=== PATIENT | male | born 1975 | race Caucasian/White ===

== ENCOUNTER 2019-05-14 17:30 | Outpatient (CLI) | payer BC | END 2019-05-14 17:31 | disposition home or self-care (01) | LOC: SLEEPLAB 17:30 | PROVIDERS: ATTEND Internal Medicine | DX: G47.33 Obstructive sleep apnea (adult) (pediatric) (principal); R53.83 Other fatigue; G47.00 Insomnia, unspecified; R35.1 Nocturia; R06.83 Snoring; R51 Headache; G47.31 Primary central sleep apnea; Z68.29 Body mass index [BMI] 29.0-29.9, adult | CPT/HCPCS: 95806 ==

== ENCOUNTER 2019-06-06 20:30 | Outpatient (CLI) | payer BC | END 2019-06-06 20:31 | disposition home or self-care (01) | LOC: SLEEPLAB 20:30 | PROVIDERS: ATTEND Internal Medicine | DX: G47.33 Obstructive sleep apnea (adult) (pediatric) (principal); G47.31 Primary central sleep apnea | CPT/HCPCS: 95811 ==

== ENCOUNTER 2019-07-16 13:27 | Outpatient (CLI) | payer BC | END 2019-07-16 13:28 | disposition home or self-care (01) | LOC: ULT 13:27 | PROVIDERS: ATTEND Internal Medicine | DX: G47.31 Primary central sleep apnea (principal); G47.33 Obstructive sleep apnea (adult) (pediatric); I07.1 Rheumatic tricuspid insufficiency | CPT/HCPCS: 93306 ==

== ENCOUNTER 2019-07-23 19:30 | Outpatient (CLI) | payer BC | END 2019-07-23 19:31 | disposition home or self-care (01) | LOC: SLEEPLAB 19:30 | PROVIDERS: ATTEND Internal Medicine | DX: G47.33 Obstructive sleep apnea (adult) (pediatric) (principal); G47.31 Primary central sleep apnea | CPT/HCPCS: 95811 ==

== ENCOUNTER 2020-06-05 08:06 | Outpatient (CLI) | payer BC ==
[2020-06-05 16:28] LABS: Hemoglobin 14.2 g/dL (14.0-18.0); Mean Corpuscular HGB CONC 33.5 G/DL (32.0-36.0); Mean Corpuscular Hemoglobin 29.3 PG (27.0-33.0); Mean Corpuscular Volume 87.4 fl (80.0-100.0); Mean Platelet Volume 11.8 fl (7.4-10.4); Platelet Count 208 10x3/uL (130-400); RBC Distribution Width 11.5 % (11.5-14.5); Red Blood Cell (RBC) Count 4.85 10x6/uL (4.40-5.80); White Blood Cell (WBC) Count 6.2 10x3/uL (4.5-11.0)
[2020-06-05 16:36] LABS: Anion Gap 11 mmol/L (10-20); BUN (Urea Nitrogen) 16 mg/dL (8.9-20.6); Calc. Creatinine Clearance 0 mL/min (70-130); Calcium 9.3 mg/dL (7.8-10.44); Carbon Dioxide 31 mmol/L (22-29); Chloride 103 mmol/L (98-107); Glucose 106 mg/dL (70-105); Sodium 141 mmol/L (136-145)
[2020-06-06 02:30] LABS: SARS-CoV-2 PCR by NAA Not Detected (NotDetected)
== END 2020-06-05 08:07 | disposition home or self-care (01) ==
LOC: LABBT 08:06
PROVIDERS: ATTEND Internal Medicine Cardiovascular Disease
DX: Z01.812 Encounter for preprocedural laboratory examination (principal); Z20.822 Contact with and (suspected) exposure to COVID-19
CPT/HCPCS: 80048; 85027; 85610; 87635; U0003; U0005

== ENCOUNTER 2020-06-10 10:07 | Inpatient (IN) | payer BC ==
[2020-06-09 10:50] VITALS: BMI 26.9
[2020-06-10] MEDS ORDERED: Heparin 10,000 UNITS/ 10 ML VIAL ONE (10:27)
[2020-06-10] MEDS ORDERED: Dexamethasone 20 MG/5 ML VIAL ONE (11:11)
[2020-06-10] MEDS ORDERED: PROPOFOL 200 MG/20 ML VIAL ONE (11:11)
[2020-06-10] MEDS ORDERED: Glycopyrrolate 0.2 MG/ML 5 ML SYRINGE ONE (11:11)
[2020-06-10] MEDS ORDERED: Lidocaine 1% PF 5 ML VIAL ONE (11:11)
[2020-06-10] MEDS ORDERED: PHENYLEPHRINE-NS 100 MCG/ML 10 ML SYRINGE ONE (11:11)
[2020-06-10] MEDS ORDERED: Ondansetron PF 4 MG/2 ML Vial ONE (11:11)
[2020-06-10] MEDS ORDERED: Rocuronium Bromide 10 MG/ML (10ML VIAL) ONE (11:11)
[2020-06-10] MEDS ORDERED: Fentanyl 100 MCG/2 ML VIAL ONE (11:41)
[2020-06-10] MEDS ORDERED: Midazolam HCl 2 mg/2 ml Vial ONE (11:41)
[2020-06-10] MEDS ORDERED: Protamine Sulfate 50 MG/5 ML VIAL ONE (16:22)
--- NOTE | 2020-06-10 20:35 | OP ---
DATE OF PROCEDURE: 06/10/2020 PCP: Eden Howard. REFERRING HOOKER OPERATOR: Rob Lew MD. PREOPERATIVE DIAGNOSIS: Paroxysmal atrial fibrillation. POSTOPERATIVE DIAGNOSIS: Paroxysmal atrial fibrillation. PROCEDURES PERFORMED: 1. Pulmonary vein isolation. 2. 3D mapping of arrhythmia. 3. Intracardiac echocardiography. MANAGER RADIATION: None. ANESTHESIA: General endotracheal. SPECIMENS: None. ESTIMATED BLOOD LOSS: 20 mL. COMPLICATIONS: None. DESCRIPTION OF PROCEDURE: The risks, benefits, and alternatives of transesophageal echocardiogram and radiofrequency ablation including but not limited to myocardial infarction, stroke, , need for emergent surgery, vascular damage, need for surgery, damage to esophageal and oropharyngeal structures, pulmonary vein stenosis, esophageal fissure, and allergic reaction were discussed prior to the procedure. The patient voiced understanding and was agreeable to proceed. The patient was intubated by Anesthesia. Transesophageal echocardiogram showed normal left atrial size with ejection fraction of 65%, normal valvular structures with trace mitral regurgitation. Temperature probe was placed by Anesthesia in the esophagus and used to monitor esophageal temperature throughout the case. The bilateral femoral areas were prepped and draped in a sterile fashion. Lidocaine was infiltrated in these areas. Using ultrasound guidance, two long 7-Cymro sheaths were placed in the left femoral vein. One 7-Cymro sheath was exchanged for a long 10-Cymro sheath. Two Lamp 45 sheaths were placed in the right femoral vein. A decapolar catheter was placed in the coronary sinus. There was difficulty engaging the coronary sinus, but it was able to be engaged. Intracardiac echocardiography was placed in the right atrium and used to guide the ablation and transseptal catheterization. Using the HD grid, 3D mapping was performed of the right atrium. Transseptal catheterization was then performed. HD grid was then used to map the left atrium. Heparin was given prior to transseptal puncture and adjusted throughout the case for target ACT of 300 to 350 seconds. All four veins had activity at baseline. Radiofrequency energy was applied at 50 cortes. Three of the four veins were isolated at end of the procedure. The right superior pulmonary vein was not completely isolated due to diaphragmatic stimulation when pacing near the anterior ostium of the vein. 3D mapping confirmed that the conduction was present only in this location. Therefore, the vein was incompletely isolated due to the risk of phrenic nerve injury. Sheaths were pulled back to the right atrium. Protamine was given to reverse the heparin. Vascade closure devices were used for hemostasis. The patient tolerated the procedure well, was transferred to recovery area in good condition. CONCLUSION: 1. Paroxysmal atrial fibrillation. 2. Successful pulmonary vein isolation. No linear lesions performed. PLAN: 1. Restart Eliquis tonight. 2. Continue flecainide. 3. Start Protonix 40 mg daily for three months. 4. Discharge home tonight. 5. Follow up with LIGIA Swann, on July 03, 2020, at 9:30 a.m. Job ID: [id number]
[2020-06-11] MEDS ORDERED: Ondansetron PF 4 MG/2 ML Vial IVP PRN (07:21)
[2020-06-11] MEDS ORDERED: HYDROcodone/Acetaminophen 5/325 mg Tablet PO PRN (07:22)
--- NOTE | 2020-06-11 07:58 | PDOC.BPN ---
- Brief Progress Note Encounter Date: 06/11/20 Encounter Time: 07:56 Patient kept overnight after right groin site bleed in recovery last night. Given the late hour of procedure decision made to monitor for a longer time to avoid hematoma formation or any chance for worsening bleeding. Has done very well overnight. Right groin site dressing this AM clean, no further drainage. Other than the typical chest soreness from our procedure the patient is doing well. Vitals and Tele have been normal overnight. We will resume Eliquis this AM and d/c to home. Continue Flecainide and Protonix. will see back as scheduled with me at [facility] in 2 weeks.
[2020-06-11 08:39] VITALS: BP 129/83; TEMP 98.3
[2020-06-11] MEDS ORDERED: Flecainide 50 MG TAB PO SCH (09:00)
[2020-06-11] MEDS ORDERED: Multivit, Therapeutic 1 TAB PO SCH (09:00)
[2020-06-11] MEDS ORDERED: Apixaban 5 MG TAB PO SCH (09:00)
[2020-06-11] MEDS ORDERED: Simvastatin 10 MG TAB PO SCH (21:00)
--- NOTE | 2020-06-12 13:15 | EKG ---
Test Reason : Blood Pressure : / mmHG Vent. Rate : 078 BPM Atrial Rate : 078 BPM P-R Int : 170 ms QRS Dur : 102 ms QT Int : 412 ms P-R-T Axes : 080 066 067 degrees QTc Int : 469 ms Normal sinus rhythm Normal ECG No previous ECGs available Confirmed by DR. Ronald BENEDICT ([id number]) on 06/12/2020 1:15:11 PM Referred By: GIOVANA Confirmed By:DR. Ronald BENEDICT
== END 2020-06-11 11:45 | disposition home or self-care (01) | DRG 274 ==
LOC: CCL 10:07 → 2NO 20:59
PROVIDERS: ADMIT Internal Medicine Cardiovascular Disease; ATTEND Internal Medicine Cardiovascular Disease
PROC: 02583ZZ Destruction of Conduction Mechanism, Percutaneous Approach (ICD-10-PCS; principal; 2020-06-10)
PROC: 02K83ZZ Map Conduction Mechanism, Percutaneous Approach (ICD-10-PCS; 2020-06-10)
PROC: B24BZZ4 Ultrasonography of Heart with Aorta, Transesophageal (ICD-10-PCS; 2020-06-10)
DX: I48.0 Paroxysmal atrial fibrillation (principal); Z88.0 Allergy status to penicillin; Z88.1 Allergy status to other antibiotic agents
CPT/HCPCS: 76942; 85347; 93005; 93312; 93613; 93656; 93662; C1730; C1732; C1753; C1894; C2630; J1100; J1644; J2250; J2405; J2704; J2720; J3010

== ENCOUNTER 2021-08-31 14:09 | Outpatient (CLI) | payer BC | END 2021-08-31 14:10 | disposition home or self-care (01) | LOC: SCSRAD 14:09 | PROVIDERS: ATTEND Physician Assistant | DX: M54.16 Radiculopathy, lumbar region (principal) | CPT/HCPCS: 72100 ==

== ENCOUNTER 2022-03-31 08:36 | Outpatient (CLI) | payer BC | END 2022-03-31 08:37 | disposition home or self-care (01) | LOC: SCSMRI 08:36 | PROVIDERS: ATTEND Family Medicine | DX: M47.26 Other spondylosis with radiculopathy, lumbar region (principal); M51.16 Intervertebral disc disorders with radiculopathy, lumbar region | CPT/HCPCS: 72148 ==

== ENCOUNTER 2023-06-27 15:31 | Emergency (ER) | payer BC ==
[2023-06-27 16:24] LABS: #Eosinphils 0.1 thou/uL (0.0-0.7); #Monocytes 0.4 thou/uL (0.11-0.59); #Neutrophils 2.7 thou/uL (1.40-6.50); %Basophils 0.8 % (0.0-1.0); %Eosinophils 2.4 % (0.0-10.0); %Lymphocytes 34.8 % (21.0-51.0); %Monocytes 8.7 % (0.0-10.0); %Neutrophils 52.9 % (42.0-75.0); Hematocrit 41.3 % (42.0-52.0); Hemoglobin 14.3 g/dL (14.0-18.0); Mean Corpuscular HGB CONC 34.6 g/dL (32.0-36.0); Mean Corpuscular Hemoglobin 30.4 pg (27.0-31.0); Mean Corpuscular Volume 87.7 fl (78.0-98.0); Platelet Count 198 10x3/uL (130-400); RBC Distribution Width 11.9 % (11.5-14.5); Red Blood Cell (RBC) Count 4.71 mill/uL (4.70-6.10); White Blood Cell (WBC) Count 5.1 10x3/uL (4.8-10.8)
[2023-06-27 16:55] LABS: Troponin I Less than 0.010 ng/mL (< 0.028)
[2023-06-27 17:18] LABS: ALT (SGPT) 29 U/L (8-55); AST (SGOT) 39 U/L (5-34); Albumin 4.5 g/dL (3.5-5.0); Alkaline Phosphatase 60 U/L (40-110); Anion Gap 12 mmol/L (10-20); BUN (Urea Nitrogen) 18 mg/dL (8.9-20.6); Bilirubin, Total 0.6 mg/dL (0.2-1.2); Calc. Creatinine Clearance 0 mL/min (70-130); Calcium 9.4 mg/dL (7.8-10.44); Carbon Dioxide 23 mmol/L (22-29); Chloride 107 mmol/L (98-107); Estimated GFR 71; Globulin 2.6 g/dL (2.4-3.5); Glucose 103 mg/dL (70-105); Potassium 3.9 mmol/L (3.5-5.1); Protein, Total 7.1 g/dL (6.0-8.3); Sodium 138 mmol/L (136-145)
== END 2023-06-27 18:14 | disposition home or self-care (01) ==
LOC: ERS 15:31
DX: I10 Essential (primary) hypertension (principal); I48.91 Unspecified atrial fibrillation; Z79.01 Long term (current) use of anticoagulants; Z87.891 Personal history of nicotine dependence
CPT/HCPCS: 71046; 80053; 84484; 85025; 85379; 93005

== ENCOUNTER 2023-07-05 15:33 | Inpatient (IN) | payer BC ==
[2023-07-05] MEDS ORDERED: dilTIAZem 25 MG/5 ML VIAL ONE (16:13)
[2023-07-05 16:16] LABS: #Basophils 0.1 thou/uL (0.0-0.2); #Eosinphils 0.2 thou/uL (0.0-0.7); #Monocytes 0.6 thou/uL (0.11-0.59); #Neutrophils 2.6 thou/uL (1.40-6.50); %Basophils 0.9 % (0.0-1.0); %Eosinophils 3.3 % (0.0-10.0); %Lymphocytes 37.2 % (21.0-51.0); %Monocytes 10.9 % (0.0-10.0); %Neutrophils 47.3 % (42.0-75.0); Hematocrit 43.4 % (42.0-52.0); Hemoglobin 15.2 g/dL (14.0-18.0); Mean Corpuscular Hemoglobin 30.8 pg (27.0-31.0); Mean Corpuscular Volume 87.9 fl (78.0-98.0); Mean Platelet Volume 11.3 fL (7.4-10.4); Platelet Count 229 10x3/uL (130-400); RBC Distribution Width 11.9 % (11.5-14.5); Red Blood Cell (RBC) Count 4.94 mill/uL (4.70-6.10); White Blood Cell (WBC) Count 5.4 10x3/uL (4.8-10.8)
[2023-07-05 16:39] LABS: Troponin I Less than 0.010 ng/mL (< 0.028)
[2023-07-05 16:46] LABS: ALT (SGPT) 32 U/L (8-55); AST (SGOT) 35 U/L (5-34); Albumin 4.2 g/dL (3.5-5.0); Alkaline Phosphatase 64 U/L (40-110); Anion Gap 16 mmol/L (10-20); BUN (Urea Nitrogen) 12 mg/dL (8.9-20.6); Bilirubin, Total 0.3 mg/dL (0.2-1.2); Calc. Creatinine Clearance 0 mL/min (70-130); Carbon Dioxide 21 mmol/L (22-29); Chloride 107 mmol/L (98-107); Estimated GFR 69; Globulin 3.1 g/dL (2.4-3.5); Glucose 94 mg/dL (70-105); Magnesium 2.3 mg/dL (1.6-2.6); Potassium 4.2 mmol/L (3.5-5.1); Protein, Total 7.3 g/dL (6.0-8.3); Sodium 140 mmol/L (136-145)
[2023-07-05 19:45] VITALS: BMI 33.8
[2023-07-05 22:59] LABS: Troponin I Less than 0.010 ng/mL (< 0.028)
[2023-07-05 23:17] LABS: Calcium 9.1 mg/dL (7.8-10.44); Chloride 108 mmol/L (98-107); Potassium 3.9 mmol/L (3.5-5.1); Sodium 138 mmol/L (136-145)
[2023-07-05 23:18] LABS: Glucose 105 mg/dL (70-105)
[2023-07-05] MEDS: Atorvastatin Calcium 10 MG TAB PO SCH (23:18)
[2023-07-05 23:19] LABS: Anion Gap 16 mmol/L (10-20); Carbon Dioxide 18 mmol/L (22-29)
[2023-07-05] MEDS: Flecainide 50 MG TAB PO SCH (23:19)
[2023-07-05] MEDS: Gabapentin 300 MG CAP PO SCH (23:19)
[2023-07-05] MEDS: Apixaban 5 MG TAB PO SCH (23:20)
[2023-07-05] MEDS: Cyclobenzaprine 10 MG TAB PO SCH (23:20)
[2023-07-05] MEDS: Aspirin Chewable 81 MG TAB PO SCH (23:20)
[2023-07-05 23:21] LABS: Calc. Creatinine Clearance 115 mL/min (70-130); Estimated GFR 75
[2023-07-05] MEDS: Loratadine 10 MG TAB PO SCH (23:21)
[2023-07-05 23:22] LABS: BUN (Urea Nitrogen) 13 mg/dL (8.9-20.6)
[2023-07-05 23:31] LABS: #Basophils 0.1 thou/uL (0.0-0.2); #Eosinphils 0.2 thou/uL (0.0-0.7); #Monocytes 0.6 thou/uL (0.11-0.59); #Neutrophils 2.7 thou/uL (1.40-6.50); %Eosinophils 2.9 % (0.0-10.0); %Lymphocytes 42.3 % (21.0-51.0); %Monocytes 10.1 % (0.0-10.0); %Neutrophils 43.4 % (42.0-75.0); Hematocrit 42.6 % (42.0-52.0); Hemoglobin 14.8 g/dL (14.0-18.0); Mean Corpuscular HGB CONC 34.7 g/dL (32.0-36.0); Mean Corpuscular Hemoglobin 30.7 pg (27.0-31.0); Mean Corpuscular Volume 88.4 fl (78.0-98.0); Mean Platelet Volume 11.1 fL (7.4-10.4); Platelet Count 213 10x3/uL (130-400); RBC Distribution Width 11.9 % (11.5-14.5); Red Blood Cell (RBC) Count 4.82 mill/uL (4.70-6.10); White Blood Cell (WBC) Count 6.3 10x3/uL (4.8-10.8)
[2023-07-06 07:53] LABS: Cardiac Risk 6.2 (Less than 4.5)
[2023-07-06] MEDS: Metoprolol Tartrate 5 MG (5 mL) VIAL IVP SCH (09:37)
[2023-07-06] MEDS: Flecainide 50 MG TAB PO SCH (09:38)
[2023-07-06] MEDS: Apixaban 5 MG TAB PO SCH (09:38)
[2023-07-06] MEDS: Aspirin Chewable 81 MG TAB PO SCH (09:38)
[2023-07-06] MEDS: Atorvastatin Calcium 10 MG TAB PO SCH (09:38)
[2023-07-06 10:24] LABS: Troponin I Less than 0.010 ng/mL (< 0.028)
[2023-07-06] MEDS ORDERED: Metoprolol Tartrate 5 MG (5 mL) VIAL IVP SCH (11:30)
[2023-07-06] MEDS: Acetaminophen/Codeine 30-300mg Tablet PO PRN (16:21)
[2023-07-06] MEDS: Metoprolol Tartrate 25 MG TAB PO SCH (16:22)
[2023-07-06] MEDS: dilTIAZem 30 MG TAB PO SCH ×2 (18:25→20:09)
[2023-07-06] MEDS: Cyclobenzaprine 10 MG TAB PO SCH (20:09)
[2023-07-06] MEDS: Enoxaparin 120 MG/0.8 ML SYRINGE SC SCH (20:09)
[2023-07-06] MEDS: Loratadine 10 MG TAB PO SCH (20:10)
[2023-07-06] MEDS: Gabapentin 300 MG CAP PO SCH (20:10)
[2023-07-07 11:31] VITALS: BP 115/83
[2023-07-07 12:05] VITALS: TEMP 97.4
== END 2023-07-07 13:19 | disposition home or self-care (01) | DRG 310 ==
LOC: ERS 15:33 → 2NO 17:15
PROVIDERS: ADMIT Hospitalist; ATTEND Internal Medicine
PROC: 5A09457 Assistance with Respiratory Ventilation, 24-96 Consecutive Hours, Continuous Positive Airway Pressure (ICD-10-PCS; principal; 2023-07-05)
DX: I48.0 Paroxysmal atrial fibrillation (principal); I48.4 Atypical atrial flutter; M54.50 Low back pain, unspecified; G89.29 Other chronic pain; E78.5 Hyperlipidemia, unspecified; G47.33 Obstructive sleep apnea (adult) (pediatric); K21.9 Gastro-esophageal reflux disease without esophagitis; Z79.01 Long term (current) use of anticoagulants; Z98.890 Other specified postprocedural states; Z79.899 Other long term (current) drug therapy; Z88.0 Allergy status to penicillin; Z88.8 Allergy status to other drugs, medicaments and biological substances
CPT/HCPCS: 36415; 71045; 80053; 80061; 83735; 83880; 84443; 84484; 85025; 93005; 93306; 94760; 96374; J1650

== ENCOUNTER 2023-12-30 07:08 | Day surgery (SDC) | payer BC ==
[2023-12-29 16:17] VITALS: BMI 34.2
[2023-12-30] MEDS ORDERED: PROPOFOL 20 ML ONE (09:02)
[2023-12-30] MEDS ORDERED: Midazolam HCl 2 mg/2 ml Vial ONE (09:02)
[2023-12-30] MEDS ORDERED: fentaNYL PF 100 MCG/2 ML SYRINGE ONE (09:02)
[2023-12-30] MEDS ORDERED: Lidocaine 1% PF 5 ML VIAL ONE (09:03)
[2023-12-30] MEDS ORDERED: Ondansetron PF 4 MG/2 ML Vial ONE (09:03)
[2023-12-30] MEDS ORDERED: Dexamethasone 4 mg/ml Vial ONE (09:03)
[2023-12-30 09:06] LABS: #Basophils 0.03 10x3/uL (0.0-0.2); %Basophils 0.9 % (0.0-1.0); %Eosinophils 3.7 % (0.0-10.0); %Lymphocytes 39.7 % (21.0-51.0); %Monocytes 12.6 % (0.0-10.0); %Neutrophils 42.5 % (42.0-75.0); Hematocrit 41.1 % (42.0-52.0); Hemoglobin 14.4 g/dL (14.0-18.0); Mean Corpuscular Hemoglobin 30.1 pg (27.0-31.0); Mean Platelet Volume 10.8 fL (7.4-10.4); Platelet Count 193 10x3/uL (130-400); RBC Distribution Width 11.8 % (11.5-14.5); Red Blood Cell (RBC) Count 4.78 mill/uL (4.70-6.10)
[2023-12-30] MEDS ORDERED: Sevoflurane 250 ML INH ANEST BOTTLE ONE (10:44)
[2023-12-30] MEDS ORDERED: Sodium Chloride 0.9% 100 ML ONE (12:18)
[2023-12-30] MEDS ORDERED: CEFAZOLIN 2 GM VIAL ONE (12:18)
[2023-12-30] MEDS ORDERED: Bacitracin Zinc Ointment 30 gm TUBE ONE (12:36)
[2023-12-30] MEDS ORDERED: Bupivacaine PF 0.5% 30 ML VIAL ONE (12:36)
[2023-12-30] MEDS ORDERED: Ketorolac Tromethamine 30 MG (1 mL) VIAL ONE (13:27)
[2023-12-30] MEDS ORDERED: fentaNYL 50 mcg/mL 1 mL Vial ONE (13:28)
== END 2023-12-30 15:37 | disposition home or self-care (01) ==
LOC: SDC 07:08
PROVIDERS: ATTEND Orthopaedic Surgery Hand Surgery
PROC: 0LN70ZZ Release Right Hand Tendon, Open Approach (ICD-10-PCS; principal; 2023-12-30)
DX: M65.311 Trigger thumb, right thumb (principal); M65.312 Trigger thumb, left thumb; M65.9 Synovitis and tenosynovitis, unspecified; M18.0 Bilateral primary osteoarthritis of first carpometacarpal joints; M77.02 Medial epicondylitis, left elbow; M67.824 Other specified disorders of tendon, left elbow; Z79.899 Other long term (current) drug therapy; Z98.890 Other specified postprocedural states; Z88.0 Allergy status to penicillin; Z88.8 Allergy status to other drugs, medicaments and biological substances; Z91.018 Allergy to other foods
CPT/HCPCS: 85025; A6223; J0665; J1100; J1885; J2250; J2405; J2704; J3010